=== PATIENT | male | born 1990 | race Caucasian/White ===

== ENCOUNTER 2017-04-24 09:04 | Emergency (ER) | payer BC, OTHER ==
[~2017-04-24] VITALS: Ht 170.2 cm; Wt 91.8 kg
[~2017-04-24 09:04] MED LIST: CELEXA 20MG20 MG/TAB PO; ORAXYL20 MG PO; PRILOTC
[2017-04-24 09:09] VITALS: BP 149/87; PULSE 119; TEMP 98.2
[2017-04-24] MEDS ORDERED: PROZAC 20MG20 MG PO (09:14)
[2017-04-24] MEDS ORDERED: XYZAL5 MG PO (09:15)
[2017-04-24] MEDS ORDERED: PREDNISONE20 MG PO (09:15)
[2017-04-24 09:57] LABS: BASO % 0.3 % (0.0-2.0); EOS % 0.1 % (0-4.0); GRAN # 6.6 (1.4-6.5); GRAN % 82.3 % (42.2-75.2); HEMATOCRIT 49.3 % (42.0-52.0); LYMPH # 1.1 (1.2-3.4); LYMPH % 13.4 % (20.0-51.0); MEAN CELL VOLUME 80 fl (80.0-100.0); MEAN CORPUSCULAR HEMOGLOBIN 28 pg (27.0-31.0); MEAN CORPUSCULAR HGB CONC 35 g/dl (33.0-37.0); MEAN PLATELET VOLUME 10.5 fl (7.4-10.4); MONO # 0.3 (0.1-0.6); MONO % 3.3 % (1.7-9.3); PLATELET COUNT 247 K/mm3 (130-400); RED BLOOD COUNT 6.13 M/mm3 (4.20-5.60)
[2017-04-24 10:07] LABS: ADJUSTED CALCIUM 9.1 mg/dL (8.4-10.2); ALBUMIN 5.6 gm/dL (3.5-5.0); BILIRUBIN,TOTAL 0.9 mg/dL (0.0-1.0); CALCIUM 10.4 mg/dL (8.4-10.2); CREATININE, serum 0.76 mg/dL (0.66-1.25); POTASSIUM 4.4 mmol/L (3.4-5.0); TOTAL PROTEIN 8.5 gm/dL (6.4-8.2)
== END 2017-04-24 11:17 | disposition home or self-care (01) ==
LOC: COL.ER 09:04
PROVIDERS: Physician Assistant Medical
DX: J02.9 Acute pharyngitis, unspecified (principal); R20.2 Paresthesia of skin; F41.9 Anxiety disorder, unspecified
CPT/HCPCS: Q9967

== ENCOUNTER 2017-07-20 21:48 | Emergency (ER) | payer BC ==
[~2017-07-20] VITALS: Ht 170.2 cm; Wt 88.6 kg
[~2017-07-20 21:48] MED LIST changes: +PREDNISONE20 MG PO; +PROZAC 20MG20 MG PO; +XYZAL5 MG PO
[2017-07-20 21:57] VITALS: BP 134/69; TEMP 98.3
[2017-07-20] MEDS ORDERED: PROZAC60 MG (23:44)
[2017-07-21] MEDS ORDERED: TAMIFLU 75MG75 MG PO (00:37)
[2017-07-21 00:41] VITALS: PULSE 90
== END 2017-07-21 00:42 | disposition home or self-care (01) ==
LOC: COL.ER 21:48
DX: J11.1 Influenza due to unidentified influenza virus with other respiratory manifestations (principal); F41.9 Anxiety disorder, unspecified; Z90.89 Acquired absence of other organs

== ENCOUNTER 2018-04-29 09:34 | Emergency (ER) | payer BC ==
[~2018-04-29 09:34] MED LIST changes: +PROZAC60 MG; +TAMIFLU 75MG75 MG PO
== END 2018-04-29 10:36 | disposition left against medical advice (07) ==
LOC: COL.ER 09:34
DX: Z72.9 Problem related to lifestyle, unspecified (principal)

== ENCOUNTER → 2018-05-04 | Outpatient (CLI) | payer BC | LOC: COL.RAD 08:15 | DX: M47.816 Spondylosis without myelopathy or radiculopathy, lumbar region (principal); R25.0 Abnormal head movements | CPT/HCPCS: A9585 ==

== ENCOUNTER 2020-11-03 18:25 | Emergency (ER) | payer BC ==
[~2020-11-03] VITALS: Ht 167.6 cm; Wt 90.9 kg
[2020-11-03 19:09] LABS: COLLECTION METHOD CLEAN CATCH
[2020-11-03 19:17] LABS: PH 6 (5-8); SQUAMOUS EPITHELIAL None Seen /hpf; URINE APPEARANCE Clear; URINE BACTERIA None Seen /hpf; URINE BILIRUBIN Negative (NEGATIVE); URINE BLOOD Negative (NEGATIVE); URINE COLOR Colorless; URINE GLUCOSE Negative (NEGATIVE); URINE KETONE Negative (NEGATIVE); URINE LEUKOCYTE ESTERASE Negative (NEGATIVE); URINE NITRATE Negative (NEGATIVE); URINE PROTEIN(semi-quant) Negative (NEGATIVE); URINE RBC 0-2 /hpf; URINE UROBILINOGEN Negative (NEGATIVE)
[2020-11-03 21:51] VITALS: BP 127/78; PULSE 72; TEMP 98.2
== END 2020-11-03 21:52 | disposition home or self-care (01) ==
LOC: COL.ER 18:25
PROVIDERS: Nurse Practitioner Primary Care
DX: R35.0 Frequency of micturition (principal); R31.9 Hematuria, unspecified; R30.0 Dysuria